=== PATIENT | male | born 1980 | race Two or more races ===

== ENCOUNTER 2019-07-13 13:34 | Inpatient (IN) | payer MEDICAID ==
[~2019-07-13] VITALS: Ht 180.3 cm; Wt 101.3 kg
[~2019-07-13 13:34] MED LIST: ASPI325T4 PO; ATO40T PO; CHOL20007 PO; CLOP75TA41 PO; FERR27TA2 PO; METF-370 PO; METO25TA5 PO
[2019-07-13] MEDS ORDERED: SODIUM CHLORIDE 0.9% 1,000 ML IVB ONE (13:51)
[2019-07-13] MEDS ORDERED: ONDANSETRON HCL 4 MG/2 ML VIAL IV ONE (14:00)
[2019-07-13] MEDS ORDERED: HYDROmorphone HCL 2 MG/ML VL IV ONE (14:00)
[2019-07-13 14:18] LABS: Basophils # (auto) 0 10 ^3/uL (0-0.2); Basophils % (auto) 0.5 % (0.0-2.0); Eosinophils # (auto) 0.1 10 ^3/uL (0-0.8); Eosinophils % (auto) 0.7 % (0.0-7.0); Hematocrit 42.3 % (41.0-53.0); Hemoglobin 14.1 g/dL (13.5-17.5); Lymphocytes # (auto) 1.2 10 ^3/uL (0.4-5.4); Mean Corpuscular Hemoglobin 27.3 pg (28.0-32.0); Mean Corpuscular Hgb Conc. 33.4 g/dL (32.0-36.0); Mean Corpuscular Volume 81.7 fL (80.0-100.0); Monocytes # (auto) 0.3 10 ^3/uL (0-1.3); Monocytes % (auto) 3.8 % (0.0-12.0); Neutrophils # (auto) 7.2 10 ^3/uL (1.6-8.6); Platelet Count (auto) 335 10^3/uL (140-450); Red Blood Cells 5.18 10^6/uL (4.5-5.90); Red Cell Distribution Width 13.6 % (11.8-14.3); White Blood Cell 8.9 10^3/uL (4.4-10.8)
[2019-07-13 14:19] LABS: Urine Bacteria MOD /hpf (None Seen); Urine Blood 2+ /uL (Negative); Urine Mucus FEW (None Seen); Urine Specific Gravity 1.024 (1.001-1.035); Urine WBC 433 /hpf (0 - 3); Urine WBC Clumps PRESENT /hpf (None Seen)
[2019-07-13 14:31] LABS: Albumin 4.3 g/dL (3.4-5.0); Calcium 9.2 mg/dL (8.5-10.1); Potassium 4.2 mmol/L (3.5-5.1)
[2019-07-13 14:34] LABS: BUN/Creatinine Ratio 10.8; Bilirubin, Total 0.9 mg/dL (0.2-1.0); Total Protein 8.3 g/dL (6.4-8.2)
[2019-07-13] MEDS ORDERED: cefTRIAXone 1GM/50ML D5W 50 ML IV ONE ×2 (15:30→16:45)
[2019-07-13] MEDS ORDERED: ACETAMINOPHEN 500 MG TAB PO PRN (16:45)
[2019-07-13] MEDS ORDERED: MORPHINE SULF INJ 2 MG/ML SYRINGE 1ML IV PRN (16:45)
[2019-07-13] MEDS ORDERED: traMADol HCL 50 MG TAB PO PRN (16:45)
[2019-07-13] MEDS ORDERED: TEMAZEPAM 15 MG CAP PO PRN (16:45)
[2019-07-13] MEDS ORDERED: PROMETHAZINE HCL 25 MG/ML 1ML IV PRN (16:45)
[2019-07-13] MEDS ORDERED: DEXTROSE (50%) 50ML SYRG IV PRN (16:45)
[2019-07-13] MEDS: ACCU-CHEK COMFORT CURVE STRIP VI SCH ×2 (17:24→22:00)
[2019-07-13] MEDS: InsuLIN REG 1unit/0.01ml Soln (100units/ml) SC SCH ×2 (17:29→22:00)
[2019-07-13] MEDS: SODIUM CHLORIDE 0.9% 1,000 ML IV SCH (17:40)
[2019-07-13 19:40] VITALS: BP 129/84
[2019-07-13 22:00] VITALS: BP 113/75
[2019-07-13] MEDS: FAMOTIDINE 20 MG TAB PO SCH (22:00)
[2019-07-14] MEDS: SODIUM CHLORIDE 0.9% 1,000 ML IV SCH ×2 (02:41→15:08)
[2019-07-14 05:00] VITALS: BP 124/73
[2019-07-14] MEDS: ACCU-CHEK COMFORT CURVE STRIP VI SCH ×3 (06:35→16:47)
[2019-07-14] MEDS: InsuLIN REG 1unit/0.01ml Soln (100units/ml) SC SCH ×3 (06:35→16:47)
[2019-07-14 06:37] LABS: Basophils # (auto) 0 10 ^3/uL (0-0.2); Basophils % (auto) 0.4 % (0.0-2.0); Eosinophils # (auto) 0.1 10 ^3/uL (0-0.8); Eosinophils % (auto) 1.6 % (0.0-7.0); Hematocrit 39.2 % (41.0-53.0); Hemoglobin 13.1 g/dL (13.5-17.5); Lymphocytes # (auto) 1.9 10 ^3/uL (0.4-5.4); Lymphocytes % (auto) 21.2 % (10.0-50.0); Mean Corpuscular Hemoglobin 27.8 pg (28.0-32.0); Mean Corpuscular Hgb Conc. 33.4 g/dL (32.0-36.0); Mean Corpuscular Volume 83.3 fL (80.0-100.0); Monocytes # (auto) 0.7 10 ^3/uL (0-1.3); Monocytes % (auto) 7.8 % (0.0-12.0); Neutrophils # (auto) 6.1 10 ^3/uL (1.6-8.6); Platelet Count (auto) 276 10^3/uL (140-450); Red Blood Cells 4.71 10^6/uL (4.5-5.90); White Blood Cell 8.9 10^3/uL (4.4-10.8)
[2019-07-14 06:49] LABS: Potassium 3.6 mmol/L (3.5-5.1)
[2019-07-14 07:02] LABS: Albumin 3.5 g/dL (3.4-5.0); BUN/Creatinine Ratio 11.1; Calcium 8.1 mg/dL (8.5-10.1)
[2019-07-14 08:58] VITALS: BP 117/73
[2019-07-14] MEDS ORDERED: cefTRIAXone 1GM/50ML D5W 50 ML IV SCH (09:00)
[2019-07-14] MEDS: FAMOTIDINE 20 MG TAB PO SCH (09:07)
[2019-07-14 12:41] VITALS: BP 104/57
[2019-07-14 17:05] VITALS: BP 124/78
[2019-07-14] MEDS ORDERED: CIPR-173 PO (17:47)
[2019-07-14 17:49] VITALS: BP 124/78
== END 2019-07-14 18:17 | disposition home or self-care (01) | DRG 463 ==
LOC: ER 13:34 → OVERFLOW 13:35 → WEST WING 19:46
PROVIDERS: ADMIT Internal Medicine; ATTEND Internal Medicine
DX: N13.6 Pyonephrosis (principal); E11.65 Type 2 diabetes mellitus with hyperglycemia; K80.20 Calculus of gallbladder without cholecystitis without obstruction; E78.5 Hyperlipidemia, unspecified; I10 Essential (primary) hypertension; I25.10 Atherosclerotic heart disease of native coronary artery without angina pectoris; J45.909 Unspecified asthma, uncomplicated; Z82.49 Family history of ischemic heart disease and other diseases of the circulatory system; I25.2 Old myocardial infarction; Z87.442 Personal history of urinary calculi; Z87.891 Personal history of nicotine dependence; Z95.5 Presence of coronary angioplasty implant and graft; Z83.3 Family history of diabetes mellitus
CPT/HCPCS: 36415; 71045; 74176; 80053; 81001; 82962; 83036; 83605; 85025; 87040; 87086; 87088; 87186; G0378; J0696; J1815; J2405

== ENCOUNTER 2019-07-18 13:50 | Inpatient (IN) | payer MEDICAID ==
[~2019-07-18] VITALS: Ht 180.3 cm; Wt 20.9 kg
[~2019-07-18 13:50] MED LIST changes: +CIPR-173 PO
[2019-07-18 14:20] LABS: Urine Bacteria FEW /hpf (None Seen); Urine Blood 2+ /uL (Negative); Urine Mucus FEW (None Seen); Urine Specific Gravity 1.031 (1.001-1.035); Urine WBC 222 /hpf (0 - 3)
[2019-07-18 14:47] LABS: Basophils # (auto) 0.1 10 ^3/uL (0-0.2); Basophils % (auto) 0.4 % (0.0-2.0); Eosinophils # (auto) 0 10 ^3/uL (0-0.8); Eosinophils % (auto) 0.1 % (0.0-7.0); Lymphocytes # (auto) 1.9 10 ^3/uL (0.4-5.4); Monocytes # (auto) 0.7 10 ^3/uL (0-1.3); White Blood Cell 17.4 10^3/uL (4.4-10.8)
[2019-07-18 14:48] LABS: Hematocrit 45.5 % (41.0-53.0); Hemoglobin 15.5 g/dL (13.5-17.5); Lymphocytes % (auto) 10.7 % (10.0-50.0); Mean Corpuscular Hemoglobin 27.7 pg (28.0-32.0); Mean Corpuscular Hgb Conc. 34.2 g/dL (32.0-36.0); Monocytes % (auto) 4.3 % (0.0-12.0); Neutrophils # (auto) 14.7 10 ^3/uL (1.6-8.6); Neutrophils % (auto) 84.5 % (37.0-80.0); Nucleated Red Blood Cells % 0.1 %; Platelet Count (auto) 462 10^3/uL (140-450); Red Blood Cells 5.61 10^6/uL (4.5-5.90); Red Cell Distribution Width 13.6 % (11.8-14.3)
[2019-07-18 15:05] LABS: Albumin 4.6 g/dL (3.4-5.0); Calcium 9.5 mg/dL (8.5-10.1); Potassium 4.2 mmol/L (3.5-5.1)
[2019-07-18 15:10] LABS: Bilirubin, Total 1.6 mg/dL (0.2-1.0); Total Protein 9.1 g/dL (6.4-8.2)
[2019-07-18 15:13] LABS: BUN/Creatinine Ratio 14.2
[2019-07-18] MEDS ORDERED: SODIUM CHLORIDE 0.9% 1,000 ML IVB ONE (15:32)
[2019-07-18] MEDS ORDERED: ONDANSETRON HCL 4 MG/2 ML VIAL IV ONE (15:45)
[2019-07-18] MEDS ORDERED: KETOROLAC TROMETH 30 MG/ML 1ML VIAL IV ONE (15:45)
[2019-07-18 16:24] LABS: INR 1.04 (0.9-1.15); Partial Thromboplastin Time 23.9 sec (23.64-32.05)
[2019-07-18] MEDS ORDERED: cefTRIAXone 1GM/50ML D5W 50 ML IV ONE ×2 (16:54→17:00)
[2019-07-18] MEDS ORDERED: DEXTROSE (50%) 50ML SYRG IV PRN (18:30)
[2019-07-18] MEDS ORDERED: MORPHINE SULF INJ 2 MG/ML SYRINGE 1ML IV PRN ×2 (18:30)
[2019-07-18] MEDS ORDERED: ACETAMINOPHEN 500 MG TAB PO PRN (18:30)
[2019-07-18] MEDS ORDERED: NITROGLYCERIN 0.4 MG SL TAB SL PRN (18:30)
[2019-07-18] MEDS ORDERED: ONDANSETRON HCL 4 MG/2 ML VIAL IV PRN (18:30)
[2019-07-18] MEDS ORDERED: HYDROcodone-ACET 5/325MG TAB PO PRN (18:30)
[2019-07-18] MEDS ORDERED: POLYETHYLENE GLYCOL 17 GM PWDR PO PRN (18:30)
[2019-07-18] MEDS: metFORMIN HYDROCHLORIDE 500 MG TAB PO SCH (18:46)
[2019-07-18] MEDS: FAMOTIDINE 20 MG TAB PO SCH (18:46)
[2019-07-18] MEDS: SODIUM CHLORIDE 0.9% 1,000 ML IV SCH (18:47)
[2019-07-18] MEDS: InsuLIN REG 1unit/0.01ml Soln (100units/ml) SC SCH (22:00)
[2019-07-18] MEDS: ACCU-CHEK COMFORT CURVE STRIP VI SCH (22:00)
--- NOTE | 2019-07-18 22:00 | NUR ---
Telemetry admit from ER REYNALDO ZAIDI admitted to Telemetry unit after SBAR received. Patient oriented to Sarahy Paz, primary RN, unit, room, bed, and unit policies regarding patient care and visiting hours. Patient now on continuous telemetry monitoring, tele box #56 and telemetry reading on arrival to unit is NSR 82. Patient placed on bedside oxygen, weighed by bedscale and encouraged to call if they need something. All questions and concerns addressed, patient verbalized understanding. Note:
--- NOTE | 2019-07-18 22:40 | NUR ---
PT REFUSING INSULIN BECAUSE HE TAKES METAFORMIN.
[2019-07-18 22:49] VITALS: BP 128/66
[2019-07-19 03:04] VITALS: BP 120/62
[2019-07-19 04:29] VITALS: BP 110/64
[2019-07-19 06:13] LABS: BUN/Creatinine Ratio 13.9; Calcium 8.4 mg/dL (8.5-10.1); Potassium 3.6 mmol/L (3.5-5.1)
[2019-07-19] MEDS: InsuLIN REG 1unit/0.01ml Soln (100units/ml) SC SCH ×2 (06:24→11:30)
[2019-07-19] MEDS: ACCU-CHEK COMFORT CURVE STRIP VI SCH ×2 (06:25→11:30)
[2019-07-19] MEDS: SODIUM CHLORIDE 0.9% 1,000 ML IV SCH (06:25)
[2019-07-19 06:26] LABS: Basophils # (auto) 0 10 ^3/uL (0-0.2); Basophils % (auto) 0.5 % (0.0-2.0); Eosinophils # (auto) 0.2 10 ^3/uL (0-0.8); Eosinophils % (auto) 1.8 % (0.0-7.0); Hematocrit 39.1 % (41.0-53.0); Lymphocytes # (auto) 2.5 10 ^3/uL (0.4-5.4); Lymphocytes % (auto) 27.1 % (10.0-50.0); Mean Corpuscular Hemoglobin 27.3 pg (28.0-32.0); Mean Corpuscular Hgb Conc. 33.3 g/dL (32.0-36.0); Mean Corpuscular Volume 81.9 fL (80.0-100.0); Monocytes # (auto) 0.8 10 ^3/uL (0-1.3); Monocytes % (auto) 8.4 % (0.0-12.0); Neutrophils # (auto) 5.7 10 ^3/uL (1.6-8.6); Neutrophils % (auto) 62.2 % (37.0-80.0); Nucleated Red Blood Cells % 0.1 %; Platelet Count (auto) 327 10^3/uL (140-450); Red Blood Cells 4.77 10^6/uL (4.5-5.90); Red Cell Distribution Width 13.3 % (11.8-14.3); White Blood Cell 9.2 10^3/uL (4.4-10.8)
[2019-07-19] MEDS: metFORMIN HYDROCHLORIDE 500 MG TAB PO SCH (08:42)
[2019-07-19 09:00] VITALS: BP 115/59
[2019-07-19] MEDS ORDERED: cefTRIAXone 1GM/50ML D5W 50 ML IV SCH (09:00)
[2019-07-19] MEDS ORDERED: ASPirin-EC 81 mg tab PO SCH (10:00)
[2019-07-19] MEDS ORDERED: CLOPIDOGREL BISULFATE 75 MG TAB PO SCH (10:00)
[2019-07-19] MEDS ORDERED: METOPROLOL TARTRATE 25 MG TAB PO SCH (10:00)
[2019-07-19] MEDS ORDERED: ATORVASTATIN 20 MG TAB PO SCH (10:00)
[2019-07-19] MEDS: FAMOTIDINE 20 MG TAB PO SCH (10:07)
[2019-07-19 13:00] VITALS: BP 116/62
--- NOTE | 2019-07-19 13:30 | NUR ---
DR BERNICE WONG.
[2019-07-19 14:15] VITALS: BP 115/59
--- NOTE | 2019-07-19 15:41 | NUR ---
Discharge instructions given as ordered. Encourage to follow up with PMD as instructed. All questions and concerns addressed. Patient verbalized understanding. Medication reconciliation form completed and copy given to patient. No Home medications held in Pharmacy and none to be returned to patient, and no needed vaccines given. IV removed with catheter intact, pressure dressing applied. Telemetry unit returned to ICU. Patient ambulated to vehicle via with all personal belongings. No distress noted at time of departure.
[2019-07-19] MEDS ORDERED: TAMSULOSIN HYDROCHLORIDE 0.4 MG CAP PO SCH (18:00)
== END 2019-07-19 15:45 | disposition home health service (06) | DRG 463 ==
LOC: ER 13:50 → TELE 13:51 → TELE-WESTW 22:18
PROVIDERS: ADMIT Nurse Practitioner Acute Care; ATTEND Internal Medicine
DX: N13.6 Pyonephrosis (principal); R65.10 Systemic inflammatory response syndrome (SIRS) of non-infectious origin without acute organ dysfunction; E11.65 Type 2 diabetes mellitus with hyperglycemia; B96.20 Unspecified Escherichia coli [E. coli] as the cause of diseases classified elsewhere; E78.5 Hyperlipidemia, unspecified; I10 Essential (primary) hypertension; K80.20 Calculus of gallbladder without cholecystitis without obstruction; I25.10 Atherosclerotic heart disease of native coronary artery without angina pectoris; Z79.82 Long term (current) use of aspirin; Z79.84 Long term (current) use of oral hypoglycemic drugs; Z82.49 Family history of ischemic heart disease and other diseases of the circulatory system; Z83.3 Family history of diabetes mellitus; Z87.442 Personal history of urinary calculi; Z87.891 Personal history of nicotine dependence; Z95.5 Presence of coronary angioplasty implant and graft; Z79.02 Long term (current) use of antithrombotics/antiplatelets; R16.0 Hepatomegaly, not elsewhere classified
CPT/HCPCS: 36415; 71045; 74176; 80048; 80053; 81001; 82962; 83036; 83735; 83970; 85025; 85610; 85730; 87081; 87086; 87088; 96361; 96365; 96375; G0378; J0696; J1885; J2405

== ENCOUNTER 2021-02-18 19:38 | Emergency (ER) | payer MEDICAID ==
[~2021-02-18] VITALS: Ht 180.3 cm; Wt 97.5 kg
[~2021-02-18 19:38] MED LIST changes: -CLOP75TA41 PO; +CLOP75TA70 PO
[2021-02-19] MEDS ORDERED: SULF800T7 PO (02:29)
[2021-02-19] MEDS ORDERED: IBUP800T27 PO (02:29)
[2021-02-19] MEDS ORDERED: KETOROLAC TROMETH 60MG/2ML VIAL IM ONE (02:30)
[2021-02-19] MEDS ORDERED: cefTRIAXone SOD 1,000 MG VL IM ONE (02:30)
[2021-02-19] MEDS ORDERED: KETOROLAC TROMETH 30 MG/ML 1ML VIAL IV ONE (20:15)
[2021-02-19] MEDS ORDERED: CLINDAMYCIN 600MG IV 50 ML IV ONE (20:15)
[2021-02-19] MEDS ORDERED: VANCOMYCIN 1GM/250ML 250 ML IV ONE (20:15)
[2021-02-19] MEDS ORDERED: PIPERACILLIN-TAZOB 3.375GM 100 ML IV ONE (20:15)
[2021-02-19] MEDS ORDERED: CEPH-509 PO (23:48)
== END 2021-02-19 03:03 | disposition home or self-care (01) ==
LOC: ER 19:43
DX: L03.113 Cellulitis of right upper limb (principal); E66.9 Obesity, unspecified; Z68.30 Body mass index [BMI] 30.0-30.9, adult
CPT/HCPCS: 96372; 99284; J0696; J1885

== ENCOUNTER 2021-02-19 17:34 | Emergency (ER) | payer MEDICAID ==
[~2021-02-19] VITALS: Ht 180.3 cm; Wt 98.4 kg
[2021-02-19 17:34] VITALS: BP 121/89
[~2021-02-19 17:34] MED LIST changes: +IBUP800T27 PO; +SULF800T7 PO
[2021-02-19 20:36] LABS: Basophils # (auto) 0 10 ^3/uL (0-0.2); Basophils % (auto) 0.4 % (0.0-2.0); Eosinophils # (auto) 0.2 10 ^3/uL (0-0.8); Eosinophils % (auto) 2.5 % (0.0-7.0); Hematocrit 39.6 % (41.0-53.0); Hemoglobin 13.6 g/dL (13.5-17.5); Lymphocytes % (auto) 21.6 % (10.0-50.0); Mean Corpuscular Hemoglobin 27.9 pg (28.0-32.0); Mean Corpuscular Hgb Conc. 34.4 g/dL (32.0-36.0); Mean Corpuscular Volume 81.1 fL (80.0-100.0); Monocytes # (auto) 0.7 10 ^3/uL (0-1.3); Monocytes % (auto) 7.2 % (0.0-12.0); Neutrophils # (auto) 6.4 10 ^3/uL (1.6-8.6); Neutrophils % (auto) 68.3 % (37.0-80.0); Nucleated Red Blood Cells % 0.1 %; Red Blood Cells 4.88 10^6/uL (4.5-5.90); White Blood Cell 9.3 10^3/uL (4.4-10.8)
[2021-02-19 20:53] LABS: Albumin 3.8 g/dL (3.4-5.0); Calcium 8.9 mg/dL (8.5-10.1)
[2021-02-19 20:59] LABS: BUN/Creatinine Ratio 16.5; Bilirubin, Total 0.9 mg/dL (0.2-1.0); Total Protein 7.6 g/dL (6.4-8.2)
[2021-02-19 22:20] LABS: CRP High Sensitivity 4.77 mg/dL (< 0.3)
[2021-02-19 22:21] LABS: INR 0.98 (0.9-1.15); Partial Thromboplastin Time 28.2 sec (23.6-33.0)
[2021-02-19] MEDS ORDERED: LIDOCAINE 2% (LOCAL ANESTH.) PF 5ml SDV ONE (22:28)
[2021-02-19] MEDS ORDERED: VANCOMYCIN 1GM/250ML 250 ML IV ONE (23:30)
[2021-02-19] MEDS ORDERED: CEPH-509 PO (23:48)
== END 2021-02-20 02:05 | disposition home or self-care (01) ==
LOC: ER 17:34
DX: L03.114 Cellulitis of left upper limb (principal); L02.414 Cutaneous abscess of left upper limb; I10 Essential (primary) hypertension; I25.10 Atherosclerotic heart disease of native coronary artery without angina pectoris; I25.2 Old myocardial infarction; E11.9 Type 2 diabetes mellitus without complications; E78.5 Hyperlipidemia, unspecified; Z87.891 Personal history of nicotine dependence; Z79.82 Long term (current) use of aspirin; Z79.01 Long term (current) use of anticoagulants; Z79.899 Other long term (current) drug therapy; Z79.1 Long term (current) use of non-steroidal anti-inflammatories (NSAID)
CPT/HCPCS: 10060; 36415; 73200; 80053; 82550; 83605; 85025; 85610; 85652; 85730; 86141; 87040; 87077; 87186; 87205; 96365; 99284; J2001; J3370

== ENCOUNTER 2024-09-26 09:24 | Emergency (ER) | payer MEDICAID ==
[~2024-09-26] VITALS: Ht 180.3 cm; Wt 100.0 kg
[~2024-09-26 09:24] MED LIST changes: +AMLO1TAB22 PO; -ASPI325T4 PO; +ASPI325T6 PO; -ATO40T PO; +ATOR-507 PO; +ATOR40TA52 PO; +BENA-36 PO; +CEPH-509 PO; +FERR1TAB31 PO; -FERR27TA2 PO; +HYDR50TA69 PO; +IBUP-1456 PO; -IBUP800T27 PO; +PRED20TA2 PO; +SULF800T23 PO; -SULF800T7 PO
[2024-09-26 09:26] VITALS: TEMP 97.9
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
--- NOTE | 2024-09-26 09:54 | ECG ---
[facility] Test Date: 2024-09-26 Test Time: 09:33:20 Pat Name: REYNALDO ZAIDI Department: [facility] ED Patient ID: [id number] Room: Gender: M Automatic [employer] Gr[employer] Operator: PRADIP : 1980 Requested By: KARLA IRENE Order Number: [id number] Reading MD: Measurements Intervals Lee Rate: 58 P: 138 MI: 128 QRS: 31 QRSD: 97 T: -6 QT: 377 QTc: 371 Interpretive Statements Sinus or ectopic atrial rhythm Inferior infarct, age indeterminate Please click the below link to view image of tracing.
--- NOTE | 2024-09-26 10:16 | DVH ---
CHEST RADIOGRAPH Indication: FALL, LEFT SIDE CHEST WALL PAIN Technique: Frontal and lateral view of the chest was obtained Comparison: None FINDINGS: Lines and Tubes: None Lungs: Clear Pleura: No effusion. No pneumothorax. Cardiomediastinal contours: Unremarkable Bones: Unremarkable IMPRESSION: No evidence of acute disease.
[2024-09-26] MEDS ORDERED: METH-1182 PO (10:22)
[2024-09-26] MEDS ORDERED: IBUP-1456 PO (10:22)
[2024-09-26] MEDS: ACETAMINOPHEN 500 MG TAB or CAP PO ONE (10:29)
[2024-09-26] MEDS ORDERED: CEPH500C PO (10:33)
[2024-09-26 10:40] VITALS: BP 130/82; PULSE 71; RESP 18; O2SAT 96
== END 2024-09-26 10:41 | disposition home or self-care (01) ==
LOC: ER 09:24
DX: S29.011A Strain of muscle and tendon of front wall of thorax, initial encounter (principal); S50.312A Abrasion of left elbow, initial encounter; S80.212A Abrasion, left knee, initial encounter; I10 Essential (primary) hypertension; E11.9 Type 2 diabetes mellitus without complications; I25.10 Atherosclerotic heart disease of native coronary artery without angina pectoris; F12.90 Cannabis use, unspecified, uncomplicated; Z87.891 Personal history of nicotine dependence; Z79.899 Other long term (current) drug therapy; Z79.82 Long term (current) use of aspirin; Z79.52 Long term (current) use of systemic steroids; Z79.1 Long term (current) use of non-steroidal anti-inflammatories (NSAID); Z79.02 Long term (current) use of antithrombotics/antiplatelets; Z87.440 Personal history of urinary (tract) infections; X58.XXXA Exposure to other specified factors, initial encounter; Y93.55 Activity, bike riding; Y92.89 Other specified places as the place of occurrence of the external cause; Y99.8 Other external cause status
CPT/HCPCS: 71046; 93005